=== PATIENT | female | born 1945 | race Caucasian/White ===

== ENCOUNTER 2025-01-07 11:41 | Emergency (ER) | payer MEDICARE, SELFPAY ==
[2025-01-07 11:43] VITALS: BP 177/95; PULSE 94; RESP 16; TEMP 36.4; O2SAT 98; BMI 31.1
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
--- NOTE | 2025-01-07 11:58 | RAD_ITS ---
PROCEDURE: CHEST PA AND LATERAL ([facility]), 01/07/2025 REASON FOR EXAM: CHEST INJURY TECHNIQUE: PA and lateral views of the chest were obtained. COMPARISON: None FINDINGS: Heart: Unremarkable. Mediastinum: Atherosclerosis Lungs/pleura: No focal consolidation. No pleural effusion or visible pneumothorax. Bones: Demineralization. Degenerative changes of the shoulders including evidence of rotator cuff pathology bilaterally. Multilevel spondylosis. Mild thoracic dextroscoliosis. Lines and support devices: None. Other: None. RAD/Chest PA and Lateral IMPRESSION: 1. No visible acute cardiopulmonary findings 2. Additional description as above. Reading Location: [id number]
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
--- NOTE | 2025-01-07 12:15 | RAD_ITS ---
PROCEDURE: HAND MIN 3 VIEWS ([facility]), 01/07/2025 REASON FOR EXAM: THUMB INJURY TECHNIQUE: PA, lateral, and oblique views of the LEFT hand were obtained. COMPARISON: None FINDINGS: Fracture/dislocation: None visible. Joint space(s): Variable IP joint space loss, up to moderate/severe at the 2nd DIP. Mild joint space loss of the 1st CMC. Soft tissues: Unremarkable. Foreign bodies: None visible. Bone mineralization: Demineralization. Other: None. RAD/Hand Min 3 Views IMPRESSION: 1. Demineralization without visible acute displaced fracture.. 2. Additional description as above. Reading Location: [id number]
[2025-01-07 12:53] VITALS: BP 134/78; PULSE 64; RESP 18; O2SAT 98
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
--- NOTE | 2025-01-07 13:11 | RAD_ITS ---
PROCEDURE: ANKLE MIN 3 VIEWS 01/07/2025 REASON FOR EXAM: INJURY TECHNIQUE: 3 views of the right ankle COMPARISON: None. FINDINGS: Bones: Diffuse osseous demineralization. Acute, linear fracture of the right distal fibula. Joints: No obvious intra-articular extension of the fracture. The ankle mortise is grossly maintained. Soft tissues: Soft tissue swelling over the lateral malleolus. RAD/Ankle min 3 Views IMPRESSION: Acute fracture of the right distal fibula. Soft tissue swelling of the lateral malleolus. Reading Location: [id number]
[2025-01-07 14:00] VITALS: BP 134/76; PULSE 64; RESP 18; O2SAT 97
== END 2025-01-07 14:21 | disposition home or self-care (01) ==
PROVIDERS: Emergency Provider Emergency Medicine; Referring Provider Emergency Medicine; Visit Provider Emergency Medicine
DX: S00.03XA Contusion of scalp, initial encounter (principal); Z96.641 Presence of right artificial hip joint; S63.602A Unspecified sprain of left thumb, initial encounter; V49.40XA Driver injured in collision with unspecified motor vehicles in traffic accident, initial encounter; S20.91XA Abrasion of unspecified parts of thorax, initial encounter; S90.01XA Contusion of right ankle, initial encounter; W22.10XA Striking against or struck by unspecified automobile airbag, initial encounter; Y92.410 Unspecified street and highway as the place of occurrence of the external cause; S90.811A Abrasion, right foot, initial encounter
CPT/HCPCS: 70450; 71046; 72125; 73130; 73610; 99284